=== PATIENT | female | born 1970 | race Caucasian/White ===

== ENCOUNTER 2017-05-03 15:36 | Emergency (ER) | payer SELFPAY, MEDICAID | END 2017-05-03 16:47 | disposition left against medical advice (07) | LOC: E/R 15:36 | DX: Z53.21 Procedure and treatment not carried out due to patient leaving prior to being seen by health care provider (principal) ==

== ENCOUNTER 2017-05-03 18:29 | Emergency (ER) | payer MEDICAID | END 2017-05-03 19:34 | disposition home or self-care (01) | LOC: E/R 18:29 | DX: J20.9 Acute bronchitis, unspecified (principal) | CPT/HCPCS: 99284; Z7502 ==